=== PATIENT | male | born 1945 | race Caucasian/White ===

== ENCOUNTER 2016-10-03 08:01 | Outpatient (CLI) | payer MEDICARE ==
[~2016-10-03] VITALS: Ht 172.7 cm; Wt 77.3 kg
--- NOTE | ~2016-10-03 | HEMODYNAMI ---
PATIENT:BOBBY ARIAS MEDICAL RECORD: [id number] : 41 LOCATION:[facility] ADMISSION DATE: 10/03/16 Generatedon:10/03/201610:28 Patient name: BOBBY ARIAS Patient #: [id number] SSN: DO B: 1945 Date of study: 10/03/2016 Page: Of Hemodynamic Procedure Report Patient Data Patient Demographics Procedure consent was obtained First Name: BOBBY Gender: Male Last Name: JUANA : 1945 Middle Initial: R Age: 71 year(s) Patient #: [id number] Race: Unknown Additional ID: [id number] Contact details [address]: [address] [place] [address] [facility] State: [place] City: [place] Zip code: [address] Past Medical History Performed procedures and imaging results Date Procedure Procedure Results Comments 09/19/2016 Stress testing Positive->Intermediate anterior with SPECT MPI risk Allergies Allergen Reaction Date Comments Reported Other allergy 10/03/2016 Cipro Admission Admission Data Admission Date: 10/03/2016 Admission Time: 8:01 Lab Results Lab Result Date: 10/03/2016 Lab Result Time: 0:00 Biochemistry Name Units Result Min Max BUN mg/dl 16 --(---*)-- 7 18 Creatinine mg/dl 1.1 --(--*-)-- 0.6 1.3 CBC Name Units Result Min Max Hemoglobin g/dl 13.5 --(*---)-- 13.5 17.5 Procedure Procedure Types Cath Procedure Diagnostic Procedure LHC LHC w/Coronaries PCI Procedure Coronary Stent Initial Miscellaneous Procedures Moderate Sedation up to 15 minutes Peripheral Cath Diagnostic Procedure Cath Peripheral Four Vessel Arteriogram Procedure Description Procedure Date Procedure Date: 10/03/2016 Procedure Start Time: 10:07 Procedure End Time: 10:27 Procedure Staff Name Function Pelon Cadet MD Performing Physician Nikko Nelson RN Nurse Louie Quintero RT Monitor Christiano Beauchamp RT Scrub Procedure Data Cath Procedure Fluoroscopy Diagnostic fluoroscopy Total fluoroscopy Time: 2.6 time: 2.6 min min Diagnostic fluoroscopy Total fluoroscopy dose: dose: 212.4 mGy 212.4 mGy Contrast Material Contrast Material Type Amount (ml) Isovue 300 120 Entry Location Entry Primary Successful Side Size Upsize Upsize Entry Closure Succes sful Closure Location (Fr) 1 (Fr) 2 (Fr) Remarks Device Remarks Femoral Right 5 Fr 6 Fr Exoseal artery Short Estimated blood loss: 10 ml Diagnostic catheters Device Type Used For End Catheter Placement Cordis 5Fr Pigtail LV Angiography Catheter (MP) Cordis 5Fr JL 4.0 Procedure Catheter (MP) Cordis 5Fr 3DRC Catheter Procedure (MP) Procedure Complications No complications Procedure Medications Medication Administration Route Dosage Oxygen NC 2 l/min Heparin Flush Bag added to field 2 bags (1000units/500ml NS) Lidocaine 2% added to field 20 Fentanyl I.V. 50 mcg Versed I.V. 1 mg Fentanyl I.V. 25 mcg Versed I.V. 0.5 mg Heparin Bolus I.V. 4000 units Integrilin (Bolus I.V. 6.8 ml 2mg/ml) Plavix P.O. 600 mg Hemodynamics Rest HGB: 13.5 (g/dl) Heart Rate: 113 (bpm) Pressure Samples Time Site Value (mmHg) Purpose Heart Use Rate(bpm) 10:09 AO 155/86(115) Snapshot 63 Snapshots Pre Cath Intra NCS Post Cath Vital Signs Time Heart Resp SPO2 NIBP (mmHg) Rhythm Pain Sedation Rate (ipm) (%) Status Level (bpm) 9:50:41 71 16 97 182/109(144) NSR 0 (11) 10(A) , No pain 9:55:05 70 18 98 177/95(143) NSR 0 (11) 10(A) , No pain 9:59:29 66 16 97 168/102(152) NSR 0 (11) 10(A) , No pain 10:03:51 64 18 98 160/94(136) NSR 0 (11) 9(A) , No pain 10:08:12 66 17 100 137/86(124) NSR 0 (11) 9(A) , No pain 10:12:28 69 20 96 137/84(119) NSR 0 (11) 9(A) , No pain 10:16:44 70 18 96 135/79(116) NSR 0 (11) 9(A) , No pain 10:21:47 74 16 9998 162/102(140) NSR 0 (11) 9(A) , No pain 10:26:09 70 13 173/103(146) NSR 0 (11) 9(A) , No pain Medications Time Medication Route Dose Verified Delivered Reason Notes Effectiveness by by 9:57:31 Oxygen NC 2 Eriika Birgit used for l/min Fan, WatkinsRN floral assistant 9:57:57 Heparin Flush added 2 Eriika Birgit used for Bag to bags Fan, WatkinsRN procedure (1000units/500ml field RN NS) 9:58:07 Lidocaine 2% added 20ml Eriika Birgit used for to vial Fan, WatkinsRN procedure field RN 10:03:49 Fentanyl I.V. 50 Eriika Birgit for sedation mcg Soren Fan RN 10:03:56 Versed I.V. 1 mg Eriika Birgit for sedation Soren Fan RN 10:08:20 Fentanyl I.V. 25 Eriika Birgit for sedation mcg Soren Fan RN 10:08:29 Versed I.V. 0.5 Eriika Birgit for sedation mg Soren Fan RN 10:13:47 Heparin Bolus I.V. 4000 Eriika Birgit for units Fan, WatkinsRN anticoagulation RN 10:14:28 Integrilin I.V. 6.8ml Eriika Birgit for integr ilin (Bolus 2mg/ml) Fan, WatkinsRN anticoagulation 3.2ml RN wasted 10:21:12 Plavix P.O. 600 Eriika Birgit for mg Fan, WatkinsRN antiplatelet RN therapy Procedure Log Time Note 9:20:12 Nikko Nelson RN sent for patient. Start room use. 9:25:10 Diagnostic Cath status Elective 9:25:13 Time tracking: Regular hours 9:25:16 Plan of Care:Hemodynamics will remain stable., Cardiac rhythm will remain stable., Comfort level will be maintained., Respiratory function will remain adequate., Patient/ family verbilizes understanding of procedure., Procedure tolerated without complication., Recovers from procedure without complications.. 9:47:38 Patient received from Pre/Post Procedure Room to CCL 3 Alert and oriented. Tansferred to table in Supine position. 9:47:39 Warm blankets applied, and vikas hugger turned on for patient comfort. 9:47:39 Correct patient and procedure confirmed by team. 9:47:40 Signed procedure consent form obtained from patient. 9:47:41 ECG and BP/O2 sat monitors applied to patient. 9:49:24 Vital chart was started 9:50:59 Baseline sample Acquired. 9:51:00 Full Disclosure recording started 9:56:11 Baseline sample Acquired. 9:56:17 Rhythm: sinus rhythm 9:56:42 H&P Date Dictated: 09/07/2016 Within 30 days and on chart., H&P Addendum completed by physician on day of procedure. (MUST COMPLETE FOR ALL OUTPATIENTS). 9:56:43 Pre-procedure instructions explained to patient. 9:56:43 Pre-op teaching completed and patient verbalized understanding. 9:56:45 Family in waiting room. 9:56:46 Patient NPO since Midnight. 9:57:08 Patient allergic to Other allergy Cipro 9:57:10 Is the patient allergic to Iodine/contrast media? No. 9:57:13 Is patient on blood thinner?No 9:57:16 ACC The patient was administered the following blood thiners within the last 24 hours: None 9:57:31 Oxygen 2 l/min NC was administered by Birgit Doty; used for procedure; 9:57:57 Heparin Flush Bag (1000units/500ml NS) 2 bags added to field was administered by Birgit Doty; used for procedure; 9:58:07 Lidocaine 2% 20ml vial added to field was administered by Birgit Doty; used for procedure; 9:58:45 Patient diabetic? No. 9:58:49 Previous problem with sedation/anesthesia? No ? 9:58:49 Snore? Yes 9:58:50 Sleep apnea? Yes 9:58:52 Deviated septum? No 9:58:52 Opens mouth fully? Yes 9:58:53 Sticks out tongue? Yes 9:58:55 Airway obstruction? No ? 9:58:57 Dentures? No ? 9:59:01 Pre procedure: right dorsailis pedis pulse 1+ Palpable, but thready & weak; easily obliterated 9:59:16 Patient pain scale 0/10 ?. 9:59:20 IV patent on arrival in left forearm with 0.9% NaCl at O. 9:59:25 Lab results completed and on chart. 9:59:29 Right groin area was prepped with chlora-prep and draped in sterile fashion 9:59:31 Alarms reviewed by R. N. 9:59:31 Sharps counted by scrub and verified by R.N. 9:59:39 Use device set Femoral Dx 9:59:40 Tegaderm 4 x 4 opened to sterile field. 9:59:41 Acist Hand Control opened to sterile field. 9:59:42 Acist Manifold opened to sterile field. 9:59:43 Acist Syringe opened to sterile field. 9:59:43 Bag Decanter opened to sterile field. 9:59:44 Medline Cath Pack opened to sterile field. 9:59:47 Terumo 5Fr Alpine Sheath opened to sterile field. 9:59:47 St Venu 260cm J .035 wire opened to sterile field. 9:59:48 Diagnostic Infinity 5Fr Multipack catheter opened to sterile field. 10:02:05 Lab Result : Hemoglobin 13.5 g/dl 10:02:05 Lab Result : Creatinine 1.1 mg/dl 10:02:05 Lab Result : BUN 16 mg/dl 10:02:33 --------ALL STOP TIME OUT------ 10:02:33 Final Timeout: patient, procedure, and site verified with staff and physician. All members of the team are in agreement. 10:02:36 Right groin site verified by team. 10:02:38 Physical assessment completed. ASA score P 2 - A patient with mild systemic disease as per Pelon Cadet MD. 10:02:42 Sedation plan: IV Moderate Sedation Versed, Fentanyl 10:02:58 Zero performed for pressure channel P1 10:03:01 Zero performed for pressure channel P1 10:03:49 Fentanyl 50 mcg I.V. was administered by Birgit Doty; for sedation; 10:03:56 Versed 1 mg I.V. was administered by Birgit Doty; for sedation; 10:03:56 Zero performed for pressure channel P1 10:03:58 Zero performed for pressure channel P1 10:04:51 Zero performed for pressure channel P1 10:07:31 Procedure started. 10:07:37 Local anesthetic to right femoral artery with Lidocaine 2% by Pelon Cadet MD.INITIAL ACCESS ONLY 10:08:04 A 5 Fr sheath was inserted into the Right Femoral artery 10:08:13 A Cordis 5Fr Pigtail Catheter (MP) was advanced over the wire and used for LV Angiography. 10:08:20 Fentanyl 25 mcg I.V. was administered by Birgit Doty; for sedation; 10:08:29 Versed 0.5 mg I.V. was administered by Birgit Doty; for sedation; 10:08:41 LV angiography performed. 10:08:43 LV gram done using BRITT 10:08:48 EF : 50 % 10:08:51 Injector settings: Ml/sec: 10, Volume: 20, 10:09:05 Catheter removed. 10:09:10 A Cordis 5Fr JL 4.0 Catheter (MP) was advanced over the wire and used for Procedure. 10:09:45 LCA angiography performed. 10:09:52 Catheter removed. 10:09:59 A Cordis 5Fr 3DRC Catheter (MP) was advanced over the wire and used for Procedure. 10:10:18 Terumo 6Fr Alpine Sheath opened to sterile field. 10:10:18 Merit BasixCompak Inflation Kit opened to sterile field. 10:10:57 RCA angiography performed. 10:11:30 Right subclavian angiography performed 10:11:32 Left carotid angiography performed. 10:11:33 Left subclavian angiography performed 10:11:41 Catheter removed. 10:12:36 Cordis 6FR XB 3.5 guide catheter opened to sterile field. 10:12:53 Sheath upsized to a 6 Fr Short. 10:12:58 6 Fr XBLAD 3.5 guide catheter was inserted over the wire 10:13:31 [facility] 10:13:33 ACC Pre-intervention LU Flow is 3. 10:13:38 PT Graphix wire advanced. 10:13:47 Heparin Bolus 4000 units I.V. was administered by Birgit Doty; for anticoagulation; 10:14:28 Integrilin (Bolus 2mg/ml) 6.8ml I.V. was administered by Birgit Doty; for anticoagulation; integrilin 3.2ml wasted 10:15:20 [place] Sci PT Graphix J 300cm 0.014 guide wire opened to sterile field. 10:16:40 Wire advanced across lesion. 10:17:05 Inflation Number: 1 A Medtronic Resolute 2.5 X 18 stent was prepped and advanced across the Mid CX. The stent was deployed at 17 CELSO for 0:10 (min:sec). 10:19:43 ACC Post-intervention LU Flow is 3. 10:19:44 Stent catheter was removed intact over wire. 10:19:45 Wire removed. 10:19:45 Guide catheter removed. 10:19:54 Cordis 6Fr Exoseal opened to sterile field. 10:20:03 Sheath removed intact; hemostasis achieved with Exoseal to the Right Femoral artery. 10:20:05 Procedure ended.(Physican Out) 10:20:26 Fluoroscopy time 02.60 minutes. 10:20:30 Fluoroscopy dose: 212.4 mGy 10:20:30 Flurop Dose total: 212.4 10:20:34 Contrast amount:Isovue 300 120ml. 10:20:40 Sharps counted by scrub and verified by R.N. 10:20:48 Insertion/operative site no bleeding no hematoma. 10:20:50 Post-op/insertion site Right Femoral artery dressed using a 4 x 4 and Tegaderm. 10:20:51 Post Procedure Pulses reassessed and unchanged 10:20:54 Post-procedure physical assessment completed. ASA score P 2 - A patient with mild systemic disease as per Pelon Cadet MD. 10:20:56 Post procedure rhythm: unchanged. 10:20:59 Estimated blood loss: 10 ml 10:21:00 Post procedure instruction explained to patient.Patient verbalizes understanding. 10:21:00 Patient needs reinforcement of post procedure teaching. 10:21:06 Procedure type changed to Cath procedure, Diagnostic procedure, LHC, LHC w/Coronaries, PCI procedure, Coronary Stent Initial, Miscellaneous Procedures, Moderate Sedation up to 15 minutes, Peripheral Cath Diagnostic Procedure, Cath Peripheral, Four Vessel Arteriogram 10:21:12 Plavix 600 mg P.O. was administered by Birgit Doty; for antiplatelet therapy; 10:21:28 Procedure Complication : No complications 10:24:31 Procedure and supply charges have been captured, reviewed, submitted and are correct. 10:27:07 Vital chart was stopped 10:27:08 See physician's report for complete and final results. 10:27:11 Report given to Pre/Post Procedure Room. 10:27:15 Patient transfered to Pre/Post Procedure Room with Stretcher. 10:27:17 Procedure ended. 10:27:17 Full Disclosure recording stopped 10:27:37 ACC-PCI Only Patient was given prescriptions, or instructed by Pelon aCdet MD to start/continue the following medications upon discharge: Aspirin, Plavix 10:27:43 End room use (Document Last) Intervention Summary Intervention Notes Time ActionType Lesion and Equipment Action# Pressure Duration Attributes Used 10:17:05 Place stent Mid CX Medtronic 1 17 00:10 Resolute 2.5 X 18 stent Device Usage Item Name Manufacture Quantity Catalog Number Hospital Part Current Minim al Lot# / Charge Number Stock Stock Serial# Code Tegade 4 1 [id number] [id number] [id number] 5 x 4 Acist Hand Acist 1 61644 102636 699571 464659 5 Control Medical Systems Inc Acist Acist 1 89811 784635 056514 652272 5 Manifold Medical Systems Inc Acist Acist 1 66373 074657 425302 991713 20 Syringe Medical Systems Inc Bag Microtek 1 2002S 128842 71401 491848 5 Decanter Medical Inc. Medline Cardinal 1 [id number] 719469 70917 183856 5 Cath Pack Health Terumo 5Fr Terumo 1 [id number] 900349 313006 845343 [address] St Venu 1 701006 813857 963687 594558 30 260cm J .035 wire Diagnostic Cardinal 1 [id number] 984291 83305 863778 30 Infinity Health 5Fr Multipack catheter Cordis 5Fr Cardinal 1 [id number] 5 Pigtail Health Catheter (MP) Cordis 5Fr Cardinal 1 [id number] 5 JL 4.0 Health Catheter (MP) Cordis 5Fr Cardinal 1 306113 5 3DRC Health Catheter (MP) Terumo 6Fr Terumo 1 IBR531 324460 387250 329648 40 Alpine Sheath Merit Merit 1 QS0436 304798 776495 805520 15 BasixCompak Medical Inflation Kit Cordis 6FR Cardinal 1 [id number] 772280 379295 823332 2 XB 3.5 Health guide catheter [place] Sci [place] 1 [id number] 283578 228613 9474585 5 PT ClearCycle J 300cm 0.014 guide wire Medtronic Medtronic 1 [id number] 125302 609314 8 [id number] Resolute 2.5 X 18 stent Cordis 6Fr Cardinal 1 EX600 979999 650651 473575 10 LogMeIn Signature Audit Felt Stage Time Signature Unsigned Intra-Procedure 10/03/2016 Louie Quintero 10:28:20 AM RT(R) Signatures Monitor : Louie Quintero RT Signature : Date : Time : [address] [address]
[2016-10-03] MEDS ORDERED: CO Q-10200 MG PO (08:40)
[2016-10-03] MEDS ORDERED: LEVOXYL75 MCG PO (08:41)
[2016-10-03] MEDS ORDERED: C-10001000 MG (08:41)
[2016-10-03] MEDS ORDERED: BUPROPION HCL100 MG PO (08:42)
[2016-10-03] MEDS ORDERED: CARDURA2 MG PO (08:42)
[2016-10-03] MEDS ORDERED: PROBIOTIC1 EAC1 PO (08:43)
[2016-10-03] MEDS ORDERED: PROTONIX40 MG PO (08:43)
[2016-10-03] MEDS ORDERED: ZIAC 10-6.25 MG1 TAB PO (08:44)
[2016-10-03] MEDS ORDERED: MAG-OX 400 MG400 MG PO (08:44)
[2016-10-03] MEDS ORDERED: CINNAMON500 MG PO (08:45)
[2016-10-03] MEDS ORDERED: MILK THISTLE140 MG PO (08:45)
[2016-10-03] MEDS ORDERED: GALZIN50 MG PO (08:45)
[2016-10-03] MEDS ORDERED: FISH OIL 1,0001 CA1 PO (08:45)
[2016-10-03] MEDS ORDERED: VITAMIN D5000 UNIT PO (08:46)
[2016-10-03] MEDS ORDERED: BAYER CHEWABLE81 MG PO (08:46)
[2016-10-03 08:49] VITALS: BP 184/102; Ht 172.7 cm; Wt 77.3 kg
[2016-10-03 09:03] LABS: BASOPHILS 0.6 % (0.0-2.0); EOSINOPHILS 2.6 % (0-7); HEMATOCRIT 39.4 % (42.0-54.0); HEMOGLOBIN 13.5 g/dL (13.5-17.5); IMMATURE GRANULOCYTES 0.3 % (0-5); LYMPHOCYTES 33.3 % (15-50); MCH 32.3 pg (26.0-34.0); MCHC 34.3 g/dL (31.0-37.0); MCV 94.3 fL (80.0-100.0); MONOCYTES 14.7 % (2-11); NEUTROPHILS 48.5 % (40-80); PLATELET COUNT 229 10x3/uL (130-400); RBC 4.18 10x6/uL (4.20-6.10); RDW 12.6 % (11.5-14.5)
[2016-10-03 09:29] LABS: ANION GAP 11.9 mmol/L (8-16); CALCIUM 8.5 mg/dL (8.5-10.1); CARBON DIOXIDE 28.8 mmol/L (21.0-32.0); CREATININE - SERUM 1.1 mg/dL (0.6-1.3); POTASSIUM - SERUM 3.7 mmol/L (3.5-5.1)
[2016-10-03] MEDS ORDERED: PLAVIX75 MG PO (10:49)
--- NOTE | 2016-10-03 12:28 | NUR ---
1100-RIGHT GROIN WITH LITTLE FIRMNESS NOTED- FEMSTOP APPLIED, DENIES NEEDS, AT SIDE
--- NOTE | 2016-10-03 12:35 | NUR ---
1130-NO CHANGES NOTED TO RIGHT GROIN, FEMSTOP IN PLACE. 1200-PRESSURE LET OFF FEMSTOP- NO BLEEDING OR HEMATOMA NOTED
--- NOTE | 2016-10-03 13:48 | NUR ---
1340-CALLED RX INTO [facility]- PLAVIX 75MG ONE DAILY DISPENSE 90 AND 3 REFILLS
--- NOTE | 2016-10-03 16:07 | NUR ---
1420- IV D'C WITH CATH TIP INTACT, RIGHT GROIN CDI, WRITTEN AND VERBAL INSTRUCTIONS GIVEN TO PT AND . DENIES FURTHUR NEEDS
--- NOTE | 2016-10-10 14:38 | OP ---
PATIENT NAME: BOBBY ARIAS MEDICAL RECORD: [id number] :41 LOCATION:D.CAT ADMISSION DATE: SURGEON: MARCIO FELIPE MD DATE OF OPERATION: 10/03/2016 PROCEDURES: 1. PTCA stent left circumflex. 2. Left heart catheterization. 3. Selective coronary angiography. 4. Left ventriculogram. 5. Four-vessel carotid and vertebral angiography. INDICATION: Angina and coronary artery disease, carotid vascular disease, dizziness, unsteady gait. PROCEDURE: After informed consent was obtained and after detailed explanation of risks, benefits as well as alternative therapies, the patient elected to proceed with angiogram and angioplasty. The right femoral area was prepped and draped in normal sterile fashion. The right femoral artery was cannulated via modified Seldinger technique with placement of 6-Khmer sheath. All catheters exchanged through this sheath. FINDINGS: There was a subselection of each subclavian as well as the left carotid. RIGHT SIDE: The common internal and external carotids have mild plaquing, none greater than 20%, no flow-limiting stenosis. Vertebral artery has no significant disease. LEFT SYSTEM: The common internal and external carotids have mild plaquing, none greater than 20% to 30%, no flow-limiting stenosis. Vertebral artery has no significant disease. Left ventriculogram was performed in standard 30-degree BRITT view, reveals good cardiac wall motion throughout all segments. Overall ejection fraction 55% to 60%. SELECTIVE CORONARY ANGIOGRAPHY: 1. Left main is with no significant angiographic disease. 2. Left anterior descending has a previously placed stent with 70% to 80% in-stent restenosis. 3. Left circumflex has 80% stenosis in the proximal vessel. 4. Right coronary has moderate irregularities, but no flow-limiting stenosis. PTCA STENT OF THE LEFT CIRCUMFLEX: Stent used is a 2.5 x 18 mm Resolute. Result was 0% residual stenosis. OVERALL IMPRESSION: Successful percutaneous transluminal coronary angioplasty stent of the left circumflex going from 80% initial stenosis to 0% residual. PLAN: For PTCA stent of the LAD in the near future. TRANSINT:[id number] Voice Confirmation ID: [id number] DOCUMENT ID: [id number] OPERATIVE REPORT [id number] FREDA ARIASNETH Mat MARCIO FELIPE MD at 1438 CC: [id number] DICTATION DATE: 10/03/16 1024 FISH FROG OR OYSTER FARMER: 10/03/16 1103 DEP CLI 10/03/16 [facility] [address] [place] [address]
== END 2016-10-03 14:30 | disposition home or self-care (01) ==
LOC: D.CATH 08:01
PROVIDERS: Internal Medicine Interventional Cardiology
DX: I25.119 Atherosclerotic heart disease of native coronary artery with unspecified angina pectoris (principal); T82.855A Stenosis of coronary artery stent, initial encounter; R26.81 Unsteadiness on feet
CPT/HCPCS: 93458; 36222; 36225; C9600

== ENCOUNTER 2016-10-10 08:32 | Outpatient (CLI) | payer MEDICARE ==
[~2016-10-10] VITALS: Ht 172.7 cm; Wt 77.3 kg
--- NOTE | ~2016-10-10 | HEMODYNAMI ---
PATIENT:BOBBY ARIAS MEDICAL RECORD: [id number] : 41 LOCATION:D.CAT ADMISSION DATE: 10/10/16 Generatedon:10/10/201614:30 Patient name: BOBBY ARIAS Patient #: [id number] SSN: DO B: 1945 Date of study: 10/10/2016 Page: Of Hemodynamic Procedure Report Patient Data Patient Demographics Procedure consent was obtained First Name: BOBBY Gender: Male Last Name: JUANA : 1945 [facility] Initial: R Age: 71 year(s) Patient #: [id number] Race: Unknown Additional ID: [id number] Contact details Address: [address] [place] [address] [facility] State: [place] City: [place] Zip code: [address] Past Medical History Allergies Allergen Reaction Date Comments Reported Other allergy 10/03/2016 Cipro Other allergy 10/10/2016 cipro Admission Admission Data Admission Date: 10/10/2016 Admission Time: 8:32 Lab Results Lab Result Date: 10/10/2016 Lab Result Time: 0:00 Biochemistry Name Units Result Min Max BUN mg/dl 10 --(-*--)-- 7 18 Creatinine mg/dl 1 --(--*-)-- 0.6 1.3 CBC Name Units Result Min Max Hemoglobin g/dl 12.7 -*(----)-- 13.5 17.5 Procedure Procedure Types Cath Procedure PCI Procedure Coronary Stent Initial Miscellaneous Procedures Moderate Sedation up to 15 minutes Procedure Description Procedure Date Procedure Date: 10/10/2016 Procedure Start Time: 14:18 Procedure End Time: 14:25 Procedure Staff Name Function Pelon Cadet MD Performing Physician Louie Quintero RT Scrub Malini Whittaker RN Nurse Christiano Beauchamp RT Monitor Procedure Data Cath Procedure Fluoroscopy Diagnostic fluoroscopy Total fluoroscopy Time: 2.7 time: 2.7 min min Diagnostic fluoroscopy Total fluoroscopy dose: 220 dose: 220 mGy mGy Contrast Material Contrast Material Type Amount (ml) Isovue 300 48 Entry Location Entry Primary Successful Side Size Upsize Upsize Entry Closure Reyes ccessful Closure Location (Fr) 1 (Fr) 2 (Fr) Remarks Device Remarks Radial Right 6 Fr Mechanical artery Short Compression Procedure Complications No complications Procedure Medications Medication Administration Route Dosage Oxygen NC 2 l/min Heparin Flush Bag added to field 2 bags (1000units/500ml NS) Lidocaine 2% added to field 20 Radial Cocktail added to field 1 syringe (Verapomil 2mg/Nitro 400mcg/Heparin 1500units) Versed I.V. 1 mg Fentanyl I.V. 50 mcg Radial Cocktail I.A. 1 syringe (Verapomil 2mg/Nitro 400mcg/Heparin 1500units) Heparin Bolus I.V. 4000 units Versed I.V. 1 mg Fentanyl I.V. 50 mcg Versed I.V. 1 mg Fentanyl I.V. 50 mcg Versed I.V. 1 mg Fentanyl I.V. 50 mcg Hemodynamics Rest HGB: 12.7 (g/dl) Heart Rate: 81 (bpm) Snapshots Pre Cath Intra NCS Post Cath Vital Signs Time Heart Resp SPO2 NIBP (mmHg) Rhythm Pain Sedation Rate (ipm) (%) Status Level (bpm) 13:31:47 82 16 98 184/106(152) NSR 0 (11) 10(A) , No pain 13:37:31 80 16 100 176/102(145) NSR 0 (11) 10(A) , No pain 13:41:53 73 16 99 157/98(135) NSR 0 (11) 10(A) , No pain 13:46:07 69 22 96 145/85(131) NSR 0 (11) 10(A) , No pain 13:50:23 67 12 97 151/84(127) NSR 0 (11) 10(A) , No pain 13:54:41 67 16 100 151/87(124) NSR 0 (11) 10(A) , No pain 13:59:00 68 16 100 149/87(124) NSR 0 (11) 10(A) , No pain 14:03:11 68 16 99 135/83(116) NSR 0 (11) 10(A) , No pain 14:07:25 67 16 100 122/80(105) NSR 0 (11) 10(A) , No pain 14:11:35 67 16 95 137/76(108) NSR 0 (11) 10(A) , No pain 14:15:49 68 16 100 118/80(102) NSR 0 (11) 10(A) , No pain 14:19:55 71 16 98 108/69(83) NSR 0 (11) 10(A) , No pain 14:24:44 77 15 98 105/70(85) NSR 0 (11) 10(A) , No pain 14:29:34 67 16 98 122/75(92) NSR 0 (11) 10(A) , No pain Medications Time Medication Route Dose Verified Delivered Reason Note s Effectiveness by by 13:37:10 Oxygen NC 2 l/min Pelon Malini Per physician Helio Whittaker RN 13:37:18 Heparin Flush added 2 bags Pelon Pelon used for Bag to Helio Cadet MD procedure (1000units/500ml field NS) 13:37:29 Lidocaine 2% added 20ml Pelon Pelon used for to vial Helio Cadet MD procedure field 13:37:37 Radial Cocktail added 1 Pelon Pelon used for (Verapomil to syringe Helio Cadet MD procedure 2mg/Nitro field 400mcg/Heparin 1500units) 14:14:24 Versed I.V. 1 mg Pelon Malini for sedation Helio Whittaker RN 14:14:40 Fentanyl I.V. 50 mcg Pelon Malini for sedation Helio Whittaker RN 14:16:35 Versed I.V. 1 mg Pelon Malini for sedation Helio Whittaker RN 14:16:48 Fentanyl I.V. 50 mcg Pelon Malini for sedation Helio Whittaker RN 14:18:30 Versed I.V. 1 mg Pelon Malini for sedation Helio Whittaker RN 14:18:35 Fentanyl I.V. 50 mcg Pelon Malini for sedation Helio Whittaker RN 14:18:38 Radial Cocktail I.A. 1 Pelon Pelon for (Verapomil syringe Helio Cadet MD vasodilation 2mg/Nitro 400mcg/Heparin 1500units) 14:19:30 Heparin Bolus I.V. 4000 Pelon Malini for dose units Helio Whittaker RN anticoagulation verified wt dr cadet 14:20:41 Versed I.V. 1 mg Pelon Hargroveca for sedation Helio Whittaker RN 14:20:47 Fentanyl I.V. 50 mcg Pelon Nayak for sedation Helio Whittaker RN Procedure Log Time Note 13:10:48 ACC Patient presents with Stable Angina CCS Anginal Class 2--Slight limitation of ordinary activity. 13:10:50 Diagnostic Cath status Elective 13:10:52 Pelon Cadet MD sent for patient. Start room use. 13:10:53 Time tracking: Regular hours 13:10:58 Plan of Care:Hemodynamics will remain stable., Cardiac rhythm will remain stable., Comfort level will be maintained., Respiratory function will remain adequate., Patient/ family verbilizes understanding of procedure., Procedure tolerated without complication., Recovers from procedure without complications.. 13:23:30 Patient received from Pre/Post Procedure Room to [facility] 2 Alert and oriented. Tansferred to table in Supine position. 13:23:31 Warm blankets applied, and vikas hugger turned on for patient comfort. 13:23:31 Correct patient and procedure confirmed by team. 13:23:32 Signed procedure consent form obtained from patient. 13:23:33 ECG and BP/O2 sat monitors applied to patient. 13:30:31 Vital chart was started 13:37:10 Oxygen 2 l/min NC was administered by Malini Whittaker RN; Per physician; 13:37:18 Heparin Flush Bag (1000units/500ml NS) 2 bags added to field was administered by Pelon Cadet MD; used for procedure; 13:37:29 Lidocaine 2% 20ml vial added to field was administered by Pelon Cadet MD; used for procedure; 13:37:37 Radial Cocktail (Verapomil 2mg/Nitro 400mcg/Heparin 1500units) 1 syringe added to field was administered by Pelon Cadet MD; used for procedure; 13:37:38 Baseline sample Acquired. 13:37:48 Rhythm: sinus tachycardia 13:37:49 Full Disclosure recording started 13:37:58 H&P Date Dictated: 10/10/2016 Within 30 days and on chart., H&P Addendum completed by physician on day of procedure. (MUST COMPLETE FOR ALL OUTPATIENTS). 13:37:59 Pre-procedure instructions explained to patient. 13:37:59 Pre-op teaching completed and patient verbalized understanding. 13:38:00 Family in waiting room. 13:38:01 Patient NPO since Midnight. 13:38:25 Patient allergic to Other allergycipro 13:38:30 Is the patient allergic to Iodine/contrast media? No. 13:38:34 Is patient on blood thinner?Yes 13:38:37 ACC The patient was administered the following blood thiners within the last 24 hours: ACCPlavix 13:38:39 Patient diabetic? No. 13:38:40 ----Pre-sedation anethsthesia assessment.---- 13:38:41 Previous problem with sedation/anesthesia? No ? 13:38:42 Snore? Yes 13:38:43 Sleep apnea? Yes 13:38:45 Deviated septum? No 13:38:46 Opens mouth fully? Yes 13:38:47 Sticks out tongue? Yes 13:38:48 Airway obstruction? No ? 13:38:50 Dentures? No ? 13:38:56 Pre procedure: left dorsailis pedis pulse 1+ Palpable, but thready & weak; easily obliterated 13:38:59 Modified Gerson's test Ulnar < 7 seconds 13:39:01 Patient pain scale 0/10 ?. 13:39:06 IV patent on arrival in left hand with 0.9% NaCl at 10ml/hr. 13:40:15 Lab Result : Creatinine 1 mg/dl 13:40:15 Lab Result : BUN 10 mg/dl 13:40:15 Lab Result : Hemoglobin 12.7 g/dl 13:40:24 Lab results completed and on chart. 13:40:50 Right Radial & Left Groin area was prepped with chlora-prep and draped in sterile fashion 13:40:51 Alarms reviewed by R. N. 13:40:52 Sharps counted by scrub and verified by R.N. 13:40:55 Physician paged 13:50:05 Zero performed for pressure channel P1 14:14:14 --------ALL STOP TIME OUT------ 14:14:14 Final Timeout: patient, procedure, and site verified with staff and physician. All members of the team are in agreement. 14:14:17 Right Radial & Left Groin site verified by team. 14:14:21 Physical assessment completed. ASA score P 2 - A patient with mild systemic disease as per Pelon Cadet MD. 14:14:24 Versed 1 mg I.V. was administered by Malini Whittaker RN; for sedation; 14:14:24 Sedation plan: IV Moderate Sedation Versed, Fentanyl 14:14:40 Fentanyl 50 mcg I.V. was administered by Malini Whittaker RN; for sedation; 14:16:35 Versed 1 mg I.V. was administered by Malini Whittaker RN; for sedation; 14:16:48 Fentanyl 50 mcg I.V. was administered by Malini Whittaker RN; for sedation; 14:16:48 Use device set Radial PCI 14:16:49 Acist Syringe opened to sterile field. 14:16:49 Acist Hand Control opened to sterile field. 14:16:50 Bag Decanter opened to sterile field. 14:16:50 Medline Cath Pack opened to sterile field. 14:16:51 Merit BasixCompak Inflation Kit opened to sterile field. 14:16:51 Terumo 6Fr Slender Glidesheath opened to sterile field. 14:16:51 St Venu 260cm Straight .035 wire opened to sterile field. 14:16:52 Acist Manifold opened to sterile field. 14:16:52 Tegaderm 4 x 4 opened to sterile field. 14:18:29 Young Whisper J 300cm 0.014 guide wire opened to sterile field. 14:18:30 Versed 1 mg I.V. was administered by Malini Whittaker RN; for sedation; 14:18:30 Cordis 6FR XBLAD 3.5 guide catheter opened to sterile field. 14:18:33 Procedure started. 14:18:35 Fentanyl 50 mcg I.V. was administered by Malini Whittaker RN; for sedation; 14:18:38 Radial Cocktail (Verapomil 2mg/Nitro 400mcg/Heparin 1500units) 1 syringe I.A. was administered by Pelon Cadet MD; for vasodilation; 14:18:53 Local anesthetic to right radial artery with Lidocaine 2% by Pelon Cadet MD.INITIAL ACCESS ONLY 14:19:00 A 6 Fr Short sheath was inserted into the Right Radial artery 14:19:30 Heparin Bolus 4000 units I.V. was administered by Malini Whittaker RN; for anticoagulation; dose verified wt dr cadet 14:19:38 ACC PCI Site: mLAD has 80% stenosis. 14:19:55 6 Fr XBLAD 3.5 guide catheter was inserted over the wire 14:20:05 WHISPER wire advanced. 14:20:41 Versed 1 mg I.V. was administered by Malini Whittaker RN; for sedation; 14:20:47 Fentanyl 50 mcg I.V. was administered by Malini Whittaker RN; for sedation; 14:21:37 Inflation Number: 1 A Medtronic Resolute 2.5 X 14 stent was prepped and advanced across the Mid LAD. The stent was deployed at 17 CELSO for 0:10 (min:sec). 14:21:54 Stent catheter was removed intact over wire. 14:23:17 Inflation Number: 2 A Medtronic Resolute 3.0 X 12 stent was prepped and advanced across the Mid LAD. The stent was deployed at 21 CELSO for 0:13 (min:sec). 14:23:38 Stent catheter was removed intact over wire. 14:23:39 Wire removed. 14:23:39 Guide catheter removed. 14:23:49 Contrast amount:Isovue 300 48ml. 14:23:57 Sheath removed intact; hemostasis achieved with Mechanical Compression to the Right Radial artery. 14:23:59 Procedure ended.(Physican Out) 14:24:13 Terumo TR Band Standard opened to sterile field. 14:24:22 Fluoroscopy time 02.70 minutes. 14:24:28 Flurop Dose total: 220 14:24:28 Fluoroscopy dose: 220 mGy 14:24:29 Sharps counted by scrub and verified by R.N. 14:24:31 TR band inflated with 10cc of air. 14:24:32 Insertion/operative site no bleeding no hematoma. 14:24:38 Post right radial artery:stable 14:24:39 Post Procedure Pulses reassessed and unchanged 14:24:44 Post procedure rhythm: sinus rhythm 14:24:46 Post procedure instruction explained to patient.Patient verbalizes understanding. 14:25:15 Procedure type changed to Cath procedure, PCI procedure, Coronary Stent Initial, Miscellaneous Procedures, Moderate Sedation up to 15 minutes 14:25:18 Procedure and supply charges have been captured, reviewed, submitted and are correct. 14:25:38 Procedure Complication : No complications 14:25:40 Vital chart was stopped 14:25:40 See physician's report for complete and final results. 14:25:42 Report given to Pre/Post Procedure Room. 14:25:45 Patient transfered to Pre/Post Procedure Room with Stretcher. 14:25:46 Procedure ended. 14:25:46 Full Disclosure recording stopped 14:25:52 End room use (Document Last) Intervention Summary Intervention Notes Time ActionType Lesion and Equipment Action# Pressure Duration Attributes Used 14:21:37 Place stent Mid LAD Medtronic 1 17 00:10 Resolute 2.5 X 14 stent 14:23:17 Place stent Mid LAD Medtronic 2 21 00:14 Resolute 3.0 X 12 stent Device Usage Item Name Manufacture Quantity Catalog Hospital Part Current Minimal Lot# / Number Charge Number Stock Stock Serial# Code Acist Acist 1 [id number] [id number] 790041 723263 20 Syringe Medical Systems Inc Acist Hand Acist 1 41676 198172 401313 812443 5 Signadyne [employer] Inc Bag Microtek 1 2002S 083615 85201 850766 5 nPulse Technologies. Medline Cardinal 1 [id number] 221052 84739 405241 5 Penstar [employer] [facility] Merit 1 [id number] 882752 702553 814984 15 Trail[employer]ing Medical Inflation Kit Terumo 6Fr Terumo 1 [id number] 570025 074191 809127 [address] Venu St Venu 1 197226 315692 728121 981387 1 260cm Straight .035 wire Acist Acist 1 99043 801701 313261 746449 5 Provision [employer] Systems Inc Tegaderm 4 3M 1 1626W 157799 299202 617032 5 x 4 Young Young 1 [id number] 478513 877882 380309 5 Whisper J Vascular 300cm 0.014 guide wire Cordis 6FR Cardinal 1 [id number] 569490 361591 399816 10 XBLAD 3.5 Health guide catheter Medtronic Medtronic 1 [id number] 827014 954453 3 [id number] Resolute 2.5 X 14 stent Medtronic Medtronic 1 [id number] 241212 613253 1 [id number] Resolute 3.0 X 12 stent Terumo TR Terumo 1 [id number] 321450 019692 254966 40 Band Standard Signature Audit [place] Stage Time Signature Unsigned Intra-Procedure 10/10/2016 Christiano Beauchamp 2:30:53 PM RT(R) Signatures Monitor : Christiano Beauchamp RT Signature : Date : Time : [facility] [address] [place] [address]
[~2016-10-10 08:32] MED LIST: BAYER CHEWABLE81 MG PO; BUPROPION HCL100 MG PO; C-10001000 MG; CARDURA2 MG PO; CINNAMON500 MG PO; CO Q-10200 MG PO; FISH OIL 1,0001 CA1 PO; GALZIN50 MG PO; LEVOXYL75 MCG PO; MAG-OX 400 MG400 MG PO; MILK THISTLE140 MG PO; PLAVIX75 MG PO; PROBIOTIC1 EAC1 PO; PROTONIX40 MG PO; VITAMIN D5000 UNIT PO; ZIAC 10-6.25 MG1 TAB PO
[2016-10-10 10:11] VITALS: BP 176/97; Ht 172.7 cm; Wt 77.3 kg
[2016-10-10 10:19] LABS: BASOPHILS 0.7 % (0.0-2.0); EOSINOPHILS 2.6 % (0-7); HEMATOCRIT 37.5 % (42.0-54.0); HEMOGLOBIN 12.7 g/dL (13.5-17.5); IMMATURE GRANULOCYTES 0.3 % (0-5); LYMPHOCYTES 24.5 % (15-50); MCHC 33.9 g/dL (31.0-37.0); MCV 94.5 fL (80.0-100.0); MEAN PLATELET VOLUME 9.6 fL (7.4-10.4); MONOCYTES 14.2 % (2-11); NEUTROPHILS 57.7 % (40-80); PLATELET COUNT 289 10x3/uL (130-400); RBC 3.97 10x6/uL (4.20-6.10); RDW 12.4 % (11.5-14.5); WBC 7.3 10x3/uL (4.8-10.8)
[2016-10-10] MEDS ORDERED: COCONUT OIL PO (10:20)
[2016-10-10] MEDS ORDERED: CURCUMIN PO (10:22)
[2016-10-10] MEDS ORDERED: SELENIUM PO (10:24)
[2016-10-10] MEDS ORDERED: GARLIC PO (10:26)
[2016-10-10] MEDS ORDERED: SILYMARIN PO (10:27)
[2016-10-10 10:40] LABS: CALC OSMOLALITY 277 mosm/kg (275-300); CALCIUM 8.8 mg/dL (8.5-10.1); CARBON DIOXIDE 26.1 mmol/L (21.0-32.0); CHLORIDE - SERUM 102 mmol/L (98-107); GLUCOSE 121 mg/dL (74-106); POTASSIUM - SERUM 3.8 mmol/L (3.5-5.1); SODIUM 139 mmol/L (136-145); UREA NITROGEN 10 mg/dL (7-18); eGFR NON AFRICAN AMERICAN 78 mL/min (90-120)
[2016-10-10] MEDS ORDERED: VITAMIN B 17 PO (10:51)
[2016-10-10] MEDS ORDERED: [UNRECOGNIZED DRUG - OTHER] PO (10:52)
[2016-10-10] MEDS ORDERED: CHROMIUM PICO200 MC1 PO (10:52)
--- NOTE | 2016-10-10 14:38 | HP ---
PATIENT: BOBBY MOREJON MEDICAL RECORD: [id number] ACCOUNT: [id number] LOCATION:[facility] : 41 ADMISSION DATE: 10/10/16 HISTORY AND PHYSICAL EXAMINATION DATE: 10/10/2016 DIAGNOSES: 1. Angina. 2. Coronary artery disease. 3. Recent percutaneous transluminal coronary angioplasty stent of the left circumflex with concomitant disease of the left anterior descending. 4. Hypertension. 5. Hyperlipidemia. HISTORY OF PRESENT ILLNESS: Mr. Morejon presents with anginal symptomatology, found to have 2-vessel coronary artery disease of the LAD and left circumflex, underwent successful PTCA stent of the left circumflex. He is now brought back for PTCA stent of the LAD. PHYSICAL EXAMINATION: GENERAL APPEARANCE: Well-nourished, well-developed, appears stated age. Level of distress, comfortable. PSYCHIATRIC: Mental status, alert, normal affect. Orientation, oriented to time, place and person. EYES: Lids and conjunctiva, noninjected. No discharge, no pallor. ENT: Lips, teeth, gums, normal dentition. Oropharynx, no cyanosis, no pallor. NECK: Carotid arteries, bilateral normal upstroke, no bruits, no thrills. JUGULAR VEINS: No jugular venous pressure or distention. CERVICAL LYMPH NODES: Nontender, nonenlarged. THYROID: Not enlarged. Nontender. No nodules. LUNGS: Respiratory effort, unlabored. CHEST: Normal curvature. No thoracic deformity. No chest wall tenderness. Percussion, resonant. Auscultation, clear. No wheezes, no rales, no rhonchi. CARDIOVASCULAR: Precordial exam, nondisplaced. No heaves or pericardial thrills. Rate and rhythm, regular. Heart sounds, normal S1, normal S2. No S3, no gallop, no rub. Systolic murmur, not heard. Diastolic murmur, not heard. EXTREMITIES: No cyanosis, no edema. Peripheral pulses, full and equal in all extremities, except as noted. No bruits appreciated. ABDOMEN: Soft, nondistended. Normal aorta. No bruit. Nontender. No masses. Liver, nontender, no hepatomegaly. Spleen, nontender, no splenomegaly. MUSCULOSKELETAL: No joint tenderness. No joint swelling. No erythema. NEUROLOGICAL: Normal gait, normal strength, normal tone. SKIN: Warm and dry. REVIEW OF SYSTEMS: The patient reports easy bruising but reports no swollen glands. The patient reports no fever, no night sweats, no significant weight gain, no significant weight loss. No significant exercise tolerance. The patient reports no dry eyes, no irritation, no vision change. Patient reports no difficulty hearing and no ear pain. Patient reports no frequent nose bleeds or nose and sinus problems. Patient reports on arm pain on exertion. No shortness of breath while lying down. No history of heart murmur. Patient reports no cough, no wheezing or coughing up blood. Patient reports no abdominal pain, no vomiting. Normal appetite. No diarrhea and not vomiting blood. No nausea and no constipation. Patient reports no incontinence. No HISTORY AND PHYSICAL [id number] BOBBY MOREJON difficulty urinating. No hematuria. No increased frequency. Patient reports no muscle aches. No weakness, no arthralgias, no back pain. No swelling of the extremities. Patient reports no abnormal mole, no jaundice, no rashes. Reports no loss of consciousness. No weakness and no numbness. No seizures, dizziness, or headaches. The patient reports no depression, no sleep disturbance, feeling safe in a relationship and no alcohol abuse. Patient reports on fatigue. Reports no runny nose or sinus pressure. No itching, no hives, and no frequent sneezing. OVERALL IMPRESSION: Anginal symptomatology with significant disease of the left anterior descending. We will proceed with percutaneous transluminal coronary angioplasty stent of the left anterior descending. TRANSINT:[id number] Voice Confirmation ID: [id number] DOCUMENT ID: [id number] MARCIO FELIPE MD at 1438 CC: [id number] DICTATION DATE: 10/10/16 0843 AN/SYQ 13 NAV/C2 OPERATOR: 10/10/16 0921 [facility] [address] [place] [address]
--- NOTE | 2016-10-10 14:57 | NUR ---
NSR RATE 60 CHEST PAIN DENIED BP 109/66. TR BAND TO R/WRIST CDI NO BLEEDING NO HEMATOMA NOTED FAMILY AT SIDE
--- NOTE | 2016-10-10 15:49 | NUR ---
VSS WITH CHEST PAIN DENIED TR BAND TO R/WRIST CDI NO BLEEDING NO HEMATOMA NOTED. SANDWICH AND SODA TO BEDSIDE
--- NOTE | 2016-10-10 17:02 | NUR ---
2 CC AIR REMOVED FROM TR BAND WITH NO BLEEDING NO HEMATOMA NOTED. CHEST PAIN DENIED VSS
--- NOTE | 2016-10-10 17:20 | NUR ---
RESTING QUIETLY NO DISTRESS VSS
--- NOTE | 2016-10-10 18:04 | NUR ---
2 CC AIR REMOVED FROM TR BAND WITH NO BLEEDING NOTED. PIV REMOVED FROM LEFT ARM CHEST PAIN DENIED PATIENT UP TO GET DRESSED FOR DISCHARGE HOME
--- NOTE | 2016-10-10 18:30 | NUR ---
DISCHARGE GONE OVER WITH PATIENT AND TR BAND REMOVED WITH DRESSING APPLIED NO BLEEDING NO HEMATOMA NOTED. CHEST PAIN DENIED LEFT VIA WC TO PARKING FOR TRANSPORT HOME
--- NOTE | 2016-10-12 08:41 | OP ---
PATIENT NAME: BOBBY ARIAS MEDICAL RECORD: [id number] :41 LOCATION:D.CAT ADMISSION DATE: SURGEON: MARCIO FELIPE MD DATE OF OPERATION: 10/10/2016 PROCEDURES: 1. PTCA stent LAD. 2. Selective coronary angiography. INDICATION: Angina and coronary artery disease. DESCRIPTION OF PROCEDURE: After informed consent was obtained and after detailed explanation of risks, benefits, as well as alternative therapies, the patient elected to proceed with angiogram and angioplasty. The right radial area was prepped and draped in normal sterile fashion. The right radial artery was cannulated via modified Seldinger technique with placement of 6-Occitan sheath. All catheters exchanged through this sheath. FINDINGS: The left anterior descending has 2 areas of 80% stenosis addressed with a 2.5 x 14 and 3.0 x 12-mm Resolute stents. Result was 0% residual stenosis. OVERALL IMPRESSION: Successful percutaneous transluminal coronary angioplasty stent of the left anterior descending going from 80% initial stenosis times 2 to 0% residual. 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
== END 2016-10-10 18:32 ==
LOC: D.CATH 08:32
PROVIDERS: Internal Medicine Interventional Cardiology
DX: I25.119 Atherosclerotic heart disease of native coronary artery with unspecified angina pectoris (principal); Z95.5 Presence of coronary angioplasty implant and graft; I10 Essential (primary) hypertension; E78.5 Hyperlipidemia, unspecified